=== PATIENT | male | born 1980 | race Caucasian/White ===

== ENCOUNTER → 2016-06-21 | Outpatient (CLI) | payer OTHER ==
[2016-06-21 12:08] LABS: CHLORIDE,CL 107 mmol/L (98-110); SODIUM,NA 141 mmol/L (136-146)
== END ==
LOC: MW.CHIM 11:27
PROVIDERS: ATTEND Internal Medicine
DX: E66.9 Obesity, unspecified (principal); K21.9 Gastro-esophageal reflux disease without esophagitis
CPT/HCPCS: 36415; 80053; 80061; 83036; 84439; 84443